=== PATIENT | female | born 1970 | race Caucasian/White ===

== ENCOUNTER → 2022-04-06 12:51 | Outpatient (BNVA) | payer MEDICARE, SELFPAY | PROVIDERS: PCP Nurse Practitioner Family; Visit Provider Nurse Practitioner Family | DX: R53.83 Other fatigue (principal); E11.40 Type 2 diabetes mellitus with diabetic neuropathy, unspecified; R73.9 Hyperglycemia, unspecified; K21.9 Gastro-esophageal reflux disease without esophagitis; I10 Essential (primary) hypertension; M54.9 Dorsalgia, unspecified; G89.29 Other chronic pain; G62.9 Polyneuropathy, unspecified; Z83.49 Family history of other endocrine, nutritional and metabolic diseases; Z80.41 Family history of malignant neoplasm of ovary; Z80.3 Family history of malignant neoplasm of breast; Z79.1 Long term (current) use of non-steroidal anti-inflammatories (NSAID); R51.9 Headache, unspecified; Z12.31 Encounter for screening mammogram for malignant neoplasm of breast; R20.2 Paresthesia of skin; R60.9 Edema, unspecified; Z76.89 Persons encountering health services in other specified circumstances | CPT/HCPCS: 80053; 80061; 83036; 83721; 84443 ==

== ENCOUNTER 2022-04-16 09:08 | Outpatient (CLI) | payer MEDICARE, SELFPAY ==
--- NOTE | 2022-04-16 09:17 | MM_ITS ---
WS: [id number] Bilateral screening 3D tomosynthesis digital mammogram, 04/16/2022 Clinical Data: screening Comparison: None. Findings: The breast parenchymal pattern shows heterogeneous density No spiculated masses or clustered calcific ations are seen. There are no secondary signs of carcinoma. MM/[place] [id number] Impression: 1. Negative bilateral mammogram unchanged. 2. Recommend annual screening mammograms. BIRADS: 1-Negative FOLLOW UP: 1 Year Follow-up The CAD roving or yarn color checker was used.
== END 2022-04-16 09:09 | disposition home or self-care (01) ==
PROVIDERS: PCP Nurse Practitioner Family; Visit Provider Nurse Practitioner Family
DX: Z12.31 Encounter for screening mammogram for malignant neoplasm of breast (principal)
CPT/HCPCS: 77063; 77067

== ENCOUNTER → 2022-05-05 13:03 | Outpatient (BNVA) | payer MEDICARE, SELFPAY | PROVIDERS: PCP Nurse Practitioner Family; Visit Provider Nurse Practitioner Family | DX: R20.2 Paresthesia of skin (principal); E11.40 Type 2 diabetes mellitus with diabetic neuropathy, unspecified; I10 Essential (primary) hypertension; R60.9 Edema, unspecified; B37.9 Candidiasis, unspecified; J32.0 Chronic maxillary sinusitis; L65.9 Nonscarring hair loss, unspecified; Z12.4 Encounter for screening for malignant neoplasm of cervix; K21.9 Gastro-esophageal reflux disease without esophagitis | CPT/HCPCS: 88175 ==

== ENCOUNTER 2022-05-11 07:06 | Outpatient (CLI) | payer MEDICARE, SELFPAY ==
--- NOTE | 2022-05-11 08:00 | US_ITS ---
WS: [id number] RIGHT UPPER QUADRANT ULTRASOUND HISTORY: elevated LFT COMPARISON: None available. Liver: 19.0 cm in length. Moderately enlarged liver with mild coarsened echotexture. There are at curly [address] 3 hypoechoic masses throughout the liver which need further evaluation. The largest measures 1.5 x 1.6 x 1.8 cm in the anterior RIGHT lobe. Largest in the LEFT lobe measures 1.1 x 1.2 x 1.9 cm just b eneath the liver capsule. Portal Vein: Normal hepatopetal flow with monophasic waveform. Gallbladder: Status post cholecystectomy. CBD: 0.6 cm Pancreas: Tail is not visualized. The body is normal. Partial visualization of the head. Right kidney: 10.5 cm in length. Normal size and echogenicity. No hydronephrosis or mass. Aorta and IVC: Unremarkable abdominal aorta and IVC. No ascites. US/US liver [id number] IMPRESSION: 1. At least 3 hypoechoic masses within the liver need further evaluation. Diff erential includes metastatic disease, complex cysts and hepatic abscesses. Less likely focal hepatic sparing. Recommend follow-up CT evaluation with arterial and portal venous phase imaging. 2. Cholecystectomy.
== END 2022-05-11 07:07 | disposition home or self-care (01) ==
LOC: RAD 07:07
PROVIDERS: PCP Nurse Practitioner Family; Visit Provider Nurse Practitioner Family
DX: R94.5 Abnormal results of liver function studies (principal); R16.0 Hepatomegaly, not elsewhere classified; Z90.49 Acquired absence of other specified parts of digestive tract
CPT/HCPCS: 76705; 80053

== ENCOUNTER 2022-05-12 13:55 | Outpatient (CLI) | payer MEDICARE, SELFPAY ==
--- NOTE | 2022-05-12 15:30 | CT_ITS ---
WS: [id number] CT ABDOMEN PELVIS TECHNIQUE: Contrast-enhanced CT of the abdomen and pelvis with coronal and sagittal reformatted image s. CLINICAL INFORMATION: 3 hypoechoic masses within the liver COMPARISON: Ultrasound May 11, 2022 DLP: 1160.[address] scans at [facility] use at least one of these dose optimization techniques: automated e xposure control; mA and/or kV adjustment per patient size (includes targeted exams where dose is matc hed to clinical indication); or iterative reconstruction. FINDINGS: Hepatomegaly. Diffuse fatty infiltration liver. Enlarged RIGHT hepatic lobe. Prior cholecystectomy. N ormal portal vein and splenic vein. Multiple enhancing lesions within the RIGHT and LEFT hepatic lobe s the largest measuring approximately 2.2 x 1.6 cm in the RIGHT hepatic lobe laterally. Additional pr ominent lesions in the dome of the liver measuring 1.5 CM. Peripheral enhancing lesion in the LEFT he patic lobe laterally measuring 2.1 CM. Normal portal vein and splenic vein. Normal spleen. Adrenal gl ands are normal. Normal renal parenchymal enhancement. No hydronephrosis. Normal caliber abdominal ao rta. Celiac and SMA are patent. Contrast pooling in the stomach with underdistention. Sigmoid diverticulosis. No evidence of acute di verticulitis. No free fluid in the pelvis. Lung bases are well aerated. No abdominal or pelvic lympha denopathy. Tiny fat-containing umbilical hernia. Retroverted uterus. CT/CT abdomen pelvis w con* [id number] IMPRESSION: 1. Hepatomegaly with diffuse fatty infiltration liver. 2. Numerous enhancing lesions (approximately 8) in both hepatic lobes largest measuring up to 2.2 x 1.6 cm in the RIGHT hepatic lobe. Most likely considerati on is multiple cavernous hemangiomas, however metastatic disease remains diffic ult to entirely exclude. RECOMMEND MRI LIVER WITHOUT AND WITH GADOLINIUM ENHANC EMENT in more definitive assessment. 3. Cholecystectomy. 4. Tiny fat-containing umbilical hernia. 5. No other suspicious findings.
== END 2022-05-12 13:56 | disposition home or self-care (01) ==
LOC: RAD 13:55
PROVIDERS: PCP Nurse Practitioner Family; Visit Provider Nurse Practitioner Family
DX: R16.0 Hepatomegaly, not elsewhere classified (principal); R93.5 Abnormal findings on diagnostic imaging of other abdominal regions, including retroperitoneum; K76.0 Fatty (change of) liver, not elsewhere classified; Z90.49 Acquired absence of other specified parts of digestive tract; K42.9 Umbilical hernia without obstruction or gangrene
CPT/HCPCS: 74177; Q9967

== ENCOUNTER 2022-05-18 08:08 | Outpatient (CLI) | payer MEDICARE, SELFPAY ==
--- NOTE | 2022-05-18 08:45 | MR_ITS ---
WS: [id number] MRI ABDOMEN with and without CONTRAST. COMPARISON: Prior CT 05/12/2022 and liver ultrasound 05/11/2022 Multiplanar, multisequence imaging is performed with and without contrast. Sagittal and axial T1 fat sat sequences post-MultiHance 17 cc IV. Liver is enlarged measuring 22.6 cm in length. Diffuse hepatic steatosis. There are multiple scattere d masses throughout the liver. There is a very mildly hyperintense on the T2 sequences and very diffi cult to see on the T1 sequences. Only one of these lesions is a typical appearance of a hemangioma. T hat is the lesion measuring 2.3 x 1.8 cm in the far lateral lateral segment of the LEFT lobe. This is T2 bright and matches the blood pool. There is peripheral puddling and filling in of this lesion on the postcontrast imaging. Additional scattered lesions throughout the liver are poorly visualized on the T2 sequences. The most visible lesion within the RIGHT lobe measuring 1.7 x 1.7 cm. After contrast administration these mas ses do enhance but not in a peripheral distribution nor due they match the blood pool. Normal appearance of the pancreas. Normal adrenal glands. No ascites or adenopathy identified. Visual ized kidneys are normal. Lung bases are normal. Spleen is negative. MR/MR abdomen wo/w con* [id number] IMPRESSION: 1. Hepatomegaly and hepatic steatosis. 2. Multiple liver lesions as described above. Only one of these is typical of a hemangioma. That is the mass within the far lateral segment of the LEFT lobe. 3. There are numerous additional mildly T2 bright lesions throughout the liver which do slightly enhance but not in a peripheral distribution as expected for hemangioma. Additional considerations are adenomas, atypical hemangiomas and m etastatic disease. Consider follow-up PET/CT imaging. Notified Sandi Cox NP at 05/18/2022 10:22 AM.
[2022-05-18] MEDS: gadobenate dimeglumine 20 mL vial IV (09:39)
== END 2022-05-18 08:09 | disposition home or self-care (01) ==
PROVIDERS: PCP Nurse Practitioner Family; Visit Provider Nurse Practitioner Family
DX: R16.0 Hepatomegaly, not elsewhere classified (principal); R79.89 Other specified abnormal findings of blood chemistry; R93.2 Abnormal findings on diagnostic imaging of liver and biliary tract; K76.0 Fatty (change of) liver, not elsewhere classified; K76.89 Other specified diseases of liver
CPT/HCPCS: 74183

== ENCOUNTER → 2022-07-07 11:47 | Outpatient (BNVA) | payer MEDICARE, SELFPAY | PROVIDERS: PCP Nurse Practitioner Family; Visit Provider Nurse Practitioner Family | DX: E11.40 Type 2 diabetes mellitus with diabetic neuropathy, unspecified (principal); I10 Essential (primary) hypertension; M54.9 Dorsalgia, unspecified; R20.2 Paresthesia of skin; G89.29 Other chronic pain; K21.9 Gastro-esophageal reflux disease without esophagitis; G62.9 Polyneuropathy, unspecified; R60.9 Edema, unspecified; L65.9 Nonscarring hair loss, unspecified; E87.0 Hyperosmolality and hypernatremia; E78.2 Mixed hyperlipidemia | CPT/HCPCS: 80053; 80061; 83036; 83721; 83880 ==

== ENCOUNTER → 2022-07-15 14:09 | Outpatient (BNVA) | payer MEDICARE, SELFPAY | PROVIDERS: PCP Nurse Practitioner Family; Visit Provider Internal Medicine Cardiovascular Disease | DX: R07.9 Chest pain, unspecified (principal); I10 Essential (primary) hypertension; E78.2 Mixed hyperlipidemia; E11.40 Type 2 diabetes mellitus with diabetic neuropathy, unspecified; R16.0 Hepatomegaly, not elsewhere classified; R06.09 Other forms of dyspnea; F17.200 Nicotine dependence, unspecified, uncomplicated; Z79.4 Long term (current) use of insulin | CPT/HCPCS: 93005; 99204; 99205 ==

== ENCOUNTER 2022-08-12 12:20 | Outpatient (CLI) | payer MEDICARE, SELFPAY ==
--- NOTE | 2022-08-12 13:00 | USCV_ITS ---
Jodryn Ag Age: 51 Gender: F : 1970 Exam Date: 08/12/2022 13:21 Ordering Phys: Joshua Nagel MD ([email or web address]) Technologist: Cherelle Fish [place] [facility] [place]: SOB/CP/ Tachycardia BP: 160 / 92 HR: 99 Rhythm: Sinus Technical Quality: Fair MEASUREMENTS (Male / Female) Normal Values 2D ECHO LV Diastolic Diameter PLAX 3.8 cm 4.2 - 5.9 / 3.9 - 5.3 cm LV Systolic Diameter PLAX 1.9 cm IVS Diastolic Thickness 0.8 cm 0.6 - 1.0 / 0.6 - 0.9 cm IVS Systolic Thickness 1.7 cm LVPW Diastolic Thickness 0.6 cm 0.6 - 1.0 / 0.6 - 0.9 cm LVPW Systolic Thickness 1.2 cm LVOT Diameter 2.0 cm LV Ejection Fraction 2D Teich 81.7 % LV Ejection Fraction MOD 2C 37.1 % LV Ejection Fraction 2C AL 40.9 % LA Diameter 2.3 cm LA Width 2.5 cm LA Height 4.6 cm RA Width 3.1 cm RA Height 3.4 cm Aorta at Sinotubular Diameter 2.3 cm IVC Diameter 1.2 cm DOPPLER AV Peak Velocity 130.0 cm/s LVOT Peak Velocity 106.0 cm/s AV Area Cont Eq vti 3.0 cm squared AV Area Cont Eq pk 2.6 cm squared MV Peak Velocity 76.0 cm/s MV Area PHT 5.0 cm squared Mitral E to A Ratio 0.9 MV E' Velocity 82.0 cm/s TR Peak Velocity 88.0 cm/s TR Peak Gradient 3.1 mmHg Right Atrial Pressure 3.0 mmHg Pulmonary Artery Systolic Pressu 6.1 mmHg PV Peak Velocity 88.0 cm/s RV Acceleration Time 0.1 s RV Ejection Time 0.2 s RV AcT/ET 0.5 FINDINGS Left Ventricle Normal left ventricular size and systolic function, EF 65% (visual). No gross wall motion normalities noted. Right Ventricle Possibly of normal size ejection fraction. Right Atrium Appears to be of normal size Left Atrium Appears to be of normal size Mitral Valve No gross abnormalities noted Aortic Valve No gross abnormalities. Leaflets cannot be delineated well Tricuspid Valve No gross abnormalities noted Pulmonic Valve Pulmonic valve not well visualized. Pericardium No pericardial effusion. Aorta Normal aortic annulus size. IVC Inferior vena cava is not visualized. CONCLUSIONS Normal left ventricular size and systolic function, EF 65% (visual). No gross wall motion normalities noted. Normal cardiac chamber sizes. No gross valvular abnormalities noted. Technically difficult study because of the poor ultrasonic window. Dr Joshua Nagel MD [facility] (Electronically Signed) Final Date: 13 August 2022 09:02 S
== END 2022-08-12 12:21 | disposition home or self-care (01) ==
LOC: RAD 12:21
PROVIDERS: PCP Nurse Practitioner Family; Visit Provider Internal Medicine Cardiovascular Disease
DX: R06.09 Other forms of dyspnea (principal); R07.9 Chest pain, unspecified
CPT/HCPCS: 93306

== ENCOUNTER → 2022-09-22 11:39 | Outpatient (BNVA) | payer MEDICARE, SELFPAY | PROVIDERS: PCP Nurse Practitioner Family; Visit Provider Nurse Practitioner Family | DX: E11.40 Type 2 diabetes mellitus with diabetic neuropathy, unspecified (principal); E78.2 Mixed hyperlipidemia; I10 Essential (primary) hypertension; G62.9 Polyneuropathy, unspecified; K21.9 Gastro-esophageal reflux disease without esophagitis; G89.29 Other chronic pain; M54.9 Dorsalgia, unspecified; R79.89 Other specified abnormal findings of blood chemistry | CPT/HCPCS: 80053; 80061; 82043; 83036; 83721 ==

== ENCOUNTER → 2022-10-20 08:57 | Outpatient (BNVA) | payer MEDICARE, SELFPAY | PROVIDERS: PCP Nurse Practitioner Family; Referring Provider Nurse Practitioner Family; Visit Provider Internal Medicine | DX: E11.40 Type 2 diabetes mellitus with diabetic neuropathy, unspecified (principal); I10 Essential (primary) hypertension; E78.2 Mixed hyperlipidemia; Z79.4 Long term (current) use of insulin; Z79.84 Long term (current) use of oral hypoglycemic drugs | CPT/HCPCS: 99204 ==

== ENCOUNTER 2022-10-26 06:15 | Outpatient (CLI) | payer MEDICARE, SELFPAY ==
[2022-10-26 06:40] VITALS: BMI 32.9
--- NOTE | 2022-10-26 06:55 | ECG_ITS ---
[facility] Test Date: 2022-10-26 Pat Name: Jordyn Ag Department: Room: Gender: Female Erp Business Analyst: : 1970 Requested By: Sandi Cox Order Number: [id number] Charmaine MD: Joshua Nagel M.D. Interpretive Statements NAME OF STUDY: LEXISCAN SESTAMIBI STRESS TEST INDICATION: Chest Pain, PROCEDURE: At the baseline, the EKG revealed normal sinus rhythm with a nonspecific T wave changes. The baseline heart was 82 bpm with a blood pressue of 140/88 mm of Hg Lexiscan was infused over a period of 20 seconds. A total of 0.4 milligrams of Lexiscan was infused. The stress phase was continued for a total of 5 minutes. Heart rate at the end of the stress phase was 90 bpm with a blood pressure 134/86 mm of Hg. The EKG at the peak infusion revealed no significant changes. Sestamibi was injected 20 seconds after the Lexiscan infusion. Heart rate at the end of the recovery phase was 88 bpm with a blood pressure of 112/82 mm of Hg. CONCLUSION: 1. No significant EKG changes with the LexiScan infusion 2. No LexiScan induced chest pain or cardiac arrhythmia 3. Normal blood pressure and heart rate response 4. Sestamibi/sestamibi perfusion scan pending; see separate report. Electronically Signed On 10-31-2022 15:44:40 CAPITAL EQUIPMENT SPECIALIST by Joshua Nagel M.D. [id number]
--- NOTE | 2022-10-26 06:55 | NMCV_ITS ---
NM nenita perf SPECT r/s* [id number] Jordyn Ag Age: 51 Gender: F : 1970 Exam Date: 10/26/2022 07:40 Ordering Phys: Sandi Cox NP Technologist: VIJAYA Cuellar Exam Location: [facility] Indications: CORONARY ANGIOPLASTY STATUS STRESS TEST [facility] IMAGE PROTOCOL Rest/Stress 1 Lexiscan Day Radiopharmaceutical Dose (mCi) Administration Site Administered by Rest: Tc-99m 10.2 IV VIJAYA Khan Sestamibi Stress:Tc-99m 32.1 IV VIJAYA Khan Sestamibi Rest: 26-Oct-2022 60 Discovery 630 Stress: 26-Oct-2022 30 Discovery 630 0.4mg Lexiscan. Images obtained in supine and prone position. SPECT RESULTS Technical Quality: Excellent Raw Data Analysis: Normal Image Corrections: No attenuation or motion correction applied Summed Stress Score: 3 Summed Rest Score: 0 Summed Difference Score: 3 PERFUSION FINDINGS Small area of moderately decreased tracer uptake in the apical septum and LV apex. Significant reversibility was noted in this region FUNCTIONAL RESULTS (calculated via Gated SPECT) Stress Image LV EF (%): 77 Stress EDV (mL):53 TID: 0.96 Stress ESV (mL):12 FUNCTIONAL FINDINGS: Segmental wall motion analysis revealing no gross wall motion abnormalities IMPRESSIONS 1. Myocardial perfusion imaging revealing a small area of reversible defect in the apical septum and LV apex suggesting ischemia in the distribution of the distal left anterior descending artery 2. Normal LV ejection fraction 77%. 3. LV wall motion analysis revealing no gross wall motion abnormalities. 4. Normal LV volume. No similar previous studies are available for comparison Dr Joshua Nagel MD [facility] (Electronically Signed) Final Date: 26 October 2022 13:42 S
[2022-10-26] MEDS: regadenoson 0.4 Mg/5 ml Syringe IVP (08:11)
[2022-10-26 08:25] VITALS: BP 112/82; PULSE 89
== END 2022-10-26 06:16 | disposition home or self-care (01) ==
PROVIDERS: PCP Nurse Practitioner Family; Visit Provider Nurse Practitioner Family
DX: Z98.61 Coronary angioplasty status (principal)
CPT/HCPCS: 36415; 78452; 93017; 96374; A9500; J2785

== ENCOUNTER → 2022-12-22 10:12 | Outpatient (BNVA) | payer MEDICARE, SELFPAY | PROVIDERS: PCP Nurse Practitioner Family; Visit Provider Nurse Practitioner Family | DX: E78.2 Mixed hyperlipidemia (principal); I10 Essential (primary) hypertension; E11.40 Type 2 diabetes mellitus with diabetic neuropathy, unspecified; K21.9 Gastro-esophageal reflux disease without esophagitis; M54.9 Dorsalgia, unspecified; G89.29 Other chronic pain; R20.2 Paresthesia of skin; G62.9 Polyneuropathy, unspecified; R60.9 Edema, unspecified; L65.9 Nonscarring hair loss, unspecified; J30.2 Other seasonal allergic rhinitis; J32.0 Chronic maxillary sinusitis | CPT/HCPCS: 80053; 80061; 83036; 83721 ==

== ENCOUNTER → 2023-01-21 08:38 | Outpatient (BNVA) | payer MEDICARE, SELFPAY | PROVIDERS: PCP Nurse Practitioner Family; Visit Provider Internal Medicine | DX: E11.40 Type 2 diabetes mellitus with diabetic neuropathy, unspecified (principal); E78.2 Mixed hyperlipidemia; R16.0 Hepatomegaly, not elsewhere classified; R74.01 Elevation of levels of liver transaminase levels; Z79.84 Long term (current) use of oral hypoglycemic drugs; Z79.4 Long term (current) use of insulin | CPT/HCPCS: 36415; 82105; 86705; 86706; 86709; 86803; 87340; 99214 ==

== ENCOUNTER → 2023-04-19 09:01 | Outpatient (BNVA) | payer MEDICARE, SELFPAY | PROVIDERS: PCP Nurse Practitioner Family; Visit Provider Nurse Practitioner Family | DX: I10 Essential (primary) hypertension (principal); E11.40 Type 2 diabetes mellitus with diabetic neuropathy, unspecified; K21.9 Gastro-esophageal reflux disease without esophagitis; E78.2 Mixed hyperlipidemia | CPT/HCPCS: 80053; 80061; 83036 ==

== ENCOUNTER 2023-04-28 07:40 | Outpatient (CLI) | payer MEDICARE, SELFPAY ==
--- NOTE | 2023-04-28 07:54 | MM_ITS ---
WS: [email or web address] BILATERAL SCREENING DIGITAL TOMOSYNTHESIS MAMMOGRAM WITH CAD HISTORY: screening COMPARISON: 04/16/2022 Bilateral CC and MLO views with tomosynthesis and synthetic mammography submitted. Computer aided det ection analyzed. Breast composition: The breasts are heterogeneously dense, which may obscure small masses. No suspici ous masses, microcalcifications or architectural distortion. Scattered asymmetries are stable. Severa l lymph nodes in the upper outer quadrants towards the axillary tails of each breast. IMPRESSION: MM/[place] [id number] BI-RADS: 2-Benign FOLLOW UP: 1 Year Follow-up
== END 2023-04-28 07:41 | disposition home or self-care (01) ==
LOC: RAD 07:43 → MOBLMAM 07:46 → RAD 07:52
PROVIDERS: PCP Nurse Practitioner Family; Visit Provider Nurse Practitioner Family
DX: Z12.31 Encounter for screening mammogram for malignant neoplasm of breast (principal); E11.40 Type 2 diabetes mellitus with diabetic neuropathy, unspecified; E78.2 Mixed hyperlipidemia; R16.0 Hepatomegaly, not elsewhere classified; R74.01 Elevation of levels of liver transaminase levels; Z79.4 Long term (current) use of insulin; Z79.84 Long term (current) use of oral hypoglycemic drugs
CPT/HCPCS: 77063; 77067; 99214

== ENCOUNTER → 2023-08-19 08:52 | Outpatient (BNVA) | payer MEDICARE, SELFPAY | PROVIDERS: PCP Nurse Practitioner Family; Visit Provider Nurse Practitioner Family | DX: I10 Essential (primary) hypertension (principal); E11.40 Type 2 diabetes mellitus with diabetic neuropathy, unspecified; E78.2 Mixed hyperlipidemia; M54.9 Dorsalgia, unspecified; G89.29 Other chronic pain; G62.9 Polyneuropathy, unspecified | CPT/HCPCS: 80053; 80061; 83036; 85025 ==

== ENCOUNTER → 2023-09-01 08:27 | Outpatient (BNVA) | payer MEDICARE, SELFPAY | PROVIDERS: PCP Nurse Practitioner Family; Visit Provider Internal Medicine | DX: E11.40 Type 2 diabetes mellitus with diabetic neuropathy, unspecified (principal); Z79.4 Long term (current) use of insulin; E78.2 Mixed hyperlipidemia; R16.0 Hepatomegaly, not elsewhere classified; R74.01 Elevation of levels of liver transaminase levels; Z79.84 Long term (current) use of oral hypoglycemic drugs | CPT/HCPCS: 99214 ==

== ENCOUNTER → 2024-02-09 13:19 | Outpatient (BNVA) | payer MEDICARE, SELFPAY | PROVIDERS: PCP Nurse Practitioner Family; Visit Provider Nurse Practitioner Family | DX: I10 Essential (primary) hypertension (principal); E11.40 Type 2 diabetes mellitus with diabetic neuropathy, unspecified; Z79.4 Long term (current) use of insulin; E78.2 Mixed hyperlipidemia; K21.9 Gastro-esophageal reflux disease without esophagitis | CPT/HCPCS: 80053; 80061; 82043; 83036; 84443; 85025 ==

== ENCOUNTER 2024-05-16 09:15 | Outpatient (CLI) | payer MEDICARE, SELFPAY ==
--- NOTE | 2024-05-16 09:20 | MM_ITS ---
WS: [email or web address] BILATERAL 3D TOMOSYNTHESIS DIGITAL SCREENING MAMMOGRAPHY WITH CAD CLINICAL INFORMATION: Mammo bus [place] HISTORY: Screening mammogram. No current complaints. COMPARISON: 2022 TECHNIQUE: Bilateral CC and MLO views. FINDINGS: The breasts are composed of heterogeneous fibroglandular density tissue, which can limit the detectio n of small underlying mass lesions. No suspicious mass, asymmetry, calcifications, or architectural d istortion. No evidence of malignancy. Vascular calcification. Punctate and lucent centered calcificat ions. Incidental axillary tail lymph nodes. MM/MM [facility] tomosynthesis [id number] IMPRESSION: DENSITY:The breasts are heterogeneously dense, which may obscure small masses. BI-RADS: 2 - Benign FOLLOW UP: 1 Year Follow-up Recommend return to annual screening mammography.
== END 2024-05-16 09:16 | disposition home or self-care (01) ==
LOC: MOBLMAM 09:19
PROVIDERS: PCP Nurse Practitioner Family; Visit Provider Nurse Practitioner Family
DX: Z12.31 Encounter for screening mammogram for malignant neoplasm of breast (principal); R92.333 Mammographic heterogeneous density, bilateral breasts; R92.1 Mammographic calcification found on diagnostic imaging of breast
CPT/HCPCS: 77063; 77067

== ENCOUNTER → 2024-05-24 13:31 | Outpatient (BNVA) | payer MEDICARE, SELFPAY | PROVIDERS: PCP Nurse Practitioner Family; Visit Provider Nurse Practitioner Family | DX: Z79.4 Long term (current) use of insulin (principal); I10 Essential (primary) hypertension; E78.2 Mixed hyperlipidemia; E11.40 Type 2 diabetes mellitus with diabetic neuropathy, unspecified | CPT/HCPCS: 80053; 80061; 83036; 83721; 84443; 85025 ==

== ENCOUNTER 2024-08-17 08:13 | Outpatient (CLI) | payer MEDICARE, SELFPAY ==
--- NOTE | 2024-08-17 08:30 | CT_ITS ---
WS: [email or web address] CT ABDOMEN AND PELVIS WITH CONTRAST HISTORY: R79.89 - Other specified abnormal findings of blood chemi... TECHNIQUE: Imaging performed of the abdomen and pelvis with IV contrast. Single phase imaging of the abdomen. Coronal and sagittal reformats are submitted. All CT scans at [facility] use at [address] one of these dose optimization techniques: automated exposure control; mA and/or kV adjustment per patient size (includes targeted exams where dose is matched to clinical indication); or iterative re construction. IV CONTRAST: Omnipaque 350; 100 mL IV. Oral contrast: Yes. DLP: 467.24 mGy.cm COMPARISON: 05/12/2022 Lower thorax: Lung bases are clear. Heart is normal size. No hiatal hernia. Liver/biliary system: Normal size liver. Hypoechoic mass with peripheral enhancement in the far LEFT lobe measures 2 x 1 x 1.9 cm. This was present on the prior study from 2021 and consistent with a hem angioma. The additional masses within the liver described on the prior study are not visualized today . This would be due to the phase of injection. Gallbladder: Status post cholecystectomy. Pancreas: Normal size pancreas and pancreatic duct. No adjacent inflammation. Spleen: Normal size spleen. No mass or infarct. Adrenal glands: Normal. Right kidney: Normal. Left kidney: Normal. Aorta: Normal. Lymphadenopathy: None. Free fluid: None. GI tract: Well distended stomach. No small bowel obstruction. Moderate diffuse constipation. Normal a ppendix. Mild distal colonic diverticular disease. No acute diverticulitis. Abdominal wall: Unremarkable abdominal wall. No hernia. Pelvis: No free fluid or adenopathy within the pelvis. Normal urinary bladder. Bones: Unremarkable. CT/CT abdomen pelvis w con* [id number] IMPRESSION: 1. No acute abdominal or pelvic abnormalities. 2. Hepatic hemangioma, LEFT lobe. Previously described on 05/12/2022 with no in crease in size or change. 3. Prior cholecystectomy. 4. No renal obstruction. 5. Normal common bile duct.
[2024-08-17] MEDS: iohexol 350 mg/mL 500 mL Btl (per mL) PO (09:32)
[2024-08-17] MEDS: iohexol 350 mg/mL 500 mL Btl (per mL) IV (09:42)
== END 2024-08-17 08:14 | disposition home or self-care (01) ==
PROVIDERS: PCP Nurse Practitioner Family; Visit Provider Nurse Practitioner Family
DX: R79.89 Other specified abnormal findings of blood chemistry (principal); R16.0 Hepatomegaly, not elsewhere classified; K59.00 Constipation, unspecified; Z90.49 Acquired absence of other specified parts of digestive tract
CPT/HCPCS: 74177

== ENCOUNTER → 2024-10-20 08:39 | Outpatient (BNVA) | payer MEDICARE, SELFPAY | PROVIDERS: PCP Nurse Practitioner Family; Visit Provider Internal Medicine | DX: E11.40 Type 2 diabetes mellitus with diabetic neuropathy, unspecified (principal); Z79.4 Long term (current) use of insulin; E78.2 Mixed hyperlipidemia; R16.0 Hepatomegaly, not elsewhere classified; R74.01 Elevation of levels of liver transaminase levels | CPT/HCPCS: 99214 ==

== ENCOUNTER → 2025-02-07 16:00 | Outpatient (BNVA) | payer MEDICARE, SELFPAY | PROVIDERS: PCP Nurse Practitioner Family; Visit Provider Nurse Practitioner Family | DX: I10 Essential (primary) hypertension (principal); E11.40 Type 2 diabetes mellitus with diabetic neuropathy, unspecified; E78.2 Mixed hyperlipidemia; Z79.4 Long term (current) use of insulin | CPT/HCPCS: 80053; 80061; 84443; 85025 ==

== ENCOUNTER → 2025-03-27 08:23 | Outpatient (BNVA) | payer MEDICARE, SELFPAY | PROVIDERS: PCP Nurse Practitioner Family; Visit Provider Nurse Practitioner Family | DX: I78.8 Other diseases of capillaries (principal); L90.5 Scar conditions and fibrosis of skin; L81.4 Other melanin hyperpigmentation; D22.4 Melanocytic nevi of scalp and neck; Z12.83 Encounter for screening for malignant neoplasm of skin; L91.8 Other hypertrophic disorders of the skin; R20.9 Unspecified disturbances of skin sensation; R20.8 Other disturbances of skin sensation; L53.8 Other specified erythematous conditions; L57.0 Actinic keratosis | CPT/HCPCS: 17000; 17110; 99203 ==

== ENCOUNTER → 2025-04-19 08:10 | Outpatient (BNVA) | payer MEDICARE, SELFPAY | PROVIDERS: PCP Nurse Practitioner Family; Visit Provider Internal Medicine | DX: E11.40 Type 2 diabetes mellitus with diabetic neuropathy, unspecified (principal); Z79.4 Long term (current) use of insulin; E78.2 Mixed hyperlipidemia; R74.01 Elevation of levels of liver transaminase levels | CPT/HCPCS: 99214 ==

== ENCOUNTER → 2025-05-09 10:36 | Outpatient (BNVA) | payer MEDICARE, SELFPAY | PROVIDERS: PCP Nurse Practitioner Family; Visit Provider Nurse Practitioner Family | DX: I10 Essential (primary) hypertension (principal); Z79.4 Long term (current) use of insulin; E11.40 Type 2 diabetes mellitus with diabetic neuropathy, unspecified | CPT/HCPCS: 80053; 80061; 82306; 82607; 83036; 83540; 84443; 85025 ==

== ENCOUNTER → 2025-05-22 09:50 | Outpatient (BNVA) | payer MEDICARE, SELFPAY | PROVIDERS: PCP Nurse Practitioner Family; Visit Provider Nurse Practitioner Family | DX: D72.829 Elevated white blood cell count, unspecified (principal) | CPT/HCPCS: 85025 ==

== ENCOUNTER 2025-06-13 09:02 | Outpatient (CLI) | payer MEDICARE, SELFPAY ==
--- NOTE | 2025-06-13 09:20 | MM_ITS ---
WS: [email or web address] BILATERAL SCREENING DIGITAL TOMOSYNTHESIS MAMMOGRAM WITH CAD HISTORY: Z12.39 - Encounter for other screening for malignant neop... COMPARISON: 05/16/2024, 04/28/2023 Bilateral CC and MLO views with tomosynthesis and synthetic mammography submitted. Computer aided detection analyzed. Breast composition: The breasts are heterogeneously dense, which may obscure small masses. No suspicious masses, microcalcifications or architectural distortion. Benign calcifications RIGHT breast. MM/MM scr BI tomosynthesis [id number] IMPRESSION: BI-RADS: 2 - Benign FOLLOW UP: 1 Year Follow-up
== END 2025-06-13 09:03 | disposition home or self-care (01) ==
LOC: MOBLMAM 09:03
PROVIDERS: PCP Nurse Practitioner Family; Visit Provider Nurse Practitioner Family
DX: Z12.31 Encounter for screening mammogram for malignant neoplasm of breast (principal); R92.333 Mammographic heterogeneous density, bilateral breasts; R92.1 Mammographic calcification found on diagnostic imaging of breast
CPT/HCPCS: 77063; 77067

== ENCOUNTER → 2025-06-14 07:58 | Outpatient (BNVA) | payer MEDICARE, SELFPAY | PROVIDERS: PCP Nurse Practitioner Family; Visit Provider Nurse Practitioner Family | DX: I78.8 Other diseases of capillaries (principal); D18.01 Hemangioma of skin and subcutaneous tissue; L81.4 Other melanin hyperpigmentation; L57.0 Actinic keratosis | CPT/HCPCS: 17000; 99213 ==